=== PATIENT | female | born 1965 | race Caucasian/White ===

== ENCOUNTER → 2020-02-27 | Outpatient (CLI) | payer OTHER ==
--- NOTE | 2020-02-27 12:41 | Diagnostic Imaging Report ---
INDICATION: Routine screening. COMPARISON: No prior mammograms are available for comparison. TECHNIQUE: 2D and 3D bilateral screening mammography was performed with CAD. FINDINGS: Scattered fibroglandular densities are identified bilaterally. No dominant mass or malignant appearing microcalcifications are seen. The axillae are unremarkable. IMPRESSION: No mammographic features suspicious for malignancy are identified. ACR BI-RADS Category 1: Negative. Result letter will be mailed to the patient. Note: At least 10% of breast cancer is not imaged by mammography. Dictated by: Dictated on workstation # [id number]
== END ==
LOC: RAD 09:28
PROVIDERS: ATTEND Nurse Practitioner Family
DX: Z12.31 Encounter for screening mammogram for malignant neoplasm of breast (principal)
CPT/HCPCS: 77063; 77067

== ENCOUNTER 2021-11-21 05:30 | Outpatient (CLI) | payer SELFPAY ==
[~2021-11-21] VITALS: Ht 177.8 cm; Wt 113.4 kg
== END 2021-11-21 12:41 | disposition home or self-care (01) ==
LOC: PREOP 05:30
PROVIDERS: ATTEND Podiatrist Foot & Ankle Surgery
DX: Z01.818 Encounter for other preprocedural examination (principal)

== ENCOUNTER 2021-11-29 06:12 | Day surgery (SDC) | payer OTHER ==
[2021-11-29] VITALS (10 sets, daily range): BP systolic 113–144; BP diastolic 81–94
[~2021-11-29] VITALS: Ht 177 cm; Wt 113.4 kg
[2021-11-29] MEDS ORDERED: LACTATED RINGERS 1,000 ML IV PRN (06:30)
[2021-11-29] MEDS ORDERED: ceFAZolin INJECTION 1,000 MG VIAL IV ONE (06:30)
[2021-11-29] MEDS ORDERED: ceFAZolin INJECTION 1,000 MG ONE (06:38)
[2021-11-29] MEDS ORDERED: BUPIVACAINE 0.5% 30 ML (SENSORCAINE) VIAL ONE (07:23)
[2021-11-29] MEDS ORDERED: LIDOCAINE 1% INJ 20 ML VIAL ONE (07:23)
[2021-11-29] MEDS ORDERED: MIDAZOLAM 2 MG/2 ML (VERSED) VIAL ONE (07:28)
[2021-11-29] MEDS ORDERED: ONDANSETRON 4 MG/2 ML (SDV) Z0FRAN ONE (07:28)
[2021-11-29] MEDS ORDERED: fentaNYL INJ 100 MCG/2 ML AMP ONE ×2 (07:28→09:54)
[2021-11-29] MEDS ORDERED: LIDOCAINE PF 2% 5 ML (XYLOCAINE) VIAL ONE (07:28)
[2021-11-29] MEDS ORDERED: SEVOFLURANE (ULTANE) 15 ML INHAL SOLN ONE ×6 (07:28→10:17)
[2021-11-29] MEDS ORDERED: proPOfol 200 MG/20 ML (DIPRIVAN) VIAL IV ONE (07:28)
--- NOTE | 2021-11-29 07:50 | Progress Note-Pre Operative ---
Pre-Operative Progress Note Date of Available H&P: Nov 29, 2021 Date H&P Reviewed: Nov 29, 2021 Time H&P Reviewed: 07:49 Pre-Operative Diagnosis: Hallux Valgus, Hypertrophic 2nd metatarsal, 2nd Hammertoe, left JASKARAN SANCHEZIN Q DPM Nov 29, 2021 07:50
--- NOTE | 2021-11-29 10:28 | Progress Note-Post Operative ---
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
[2021-11-29] MEDS ORDERED: LACTATED RINGERS 1,000 ML IV SCH (10:30)
[2021-11-29] MEDS ORDERED: HYDROcodone/APAP 5 MG/325 MG (LORTAB) TAB PO PRN (10:30)
[2021-11-29] MEDS ORDERED: ACHD5005 PO (10:31)
[2021-11-29] MEDS ORDERED: CEPH500C PO (10:31)
--- NOTE | 2021-11-29 10:32 | Anesthesia-General Post-Op ---
General Patient Condition Mental Status/LOC: Same as Preop Cardiovascular: Satisfactory Nausea/Vomiting: Absent Respiratory: Satisfactory Pain: Controlled Complications: Absent Post Op Complications Complications None Follow Up Care/Instructions Patient Instructions None needed. Anesthesia/Patient Condition Patient Condition Patient is doing well, no complaints, stable vital signs, no apparent adverse anesthesia problems. No complications reported per nursing. ZURI ODONNELL CRNA Nov 29, 2021 10:32
[2021-11-29] MEDS ORDERED: ONDANSETRON 4 MG/2 ML (SDV) Z0FRAN IVP PRN (10:45)
[2021-11-29] MEDS ORDERED: MEPERIDINE (DEMEROL) INJ 50 MG/ML IVP ONE (10:45)
[2021-11-29] MEDS ORDERED: morphine INJ 10 MG/ML 1ML (SYR OR VIAL) IVP ONE (10:45)
[2021-11-29] MEDS ORDERED: HYDROmorphone 2 MG/ML VIAL (DILAUDID) IV ONE (10:45)
--- NOTE | 2021-11-29 12:32 | Diagnostic Imaging Report ---
INDICATION: Postoperative evaluation. EXAMINATION: Left foot 11/29/2021. FINDINGS: 2 views of the foot. There is a K wire extending through the 2nd phalanx. The tip of the wire ends at the proximal tip of the proximal 2nd phalanx. There is a screw within the 2nd metacarpal. 2 screws traverse the mid 1st metacarpal with osteotomy changes noted. Cerclage wire lies along the medial border of the proximal 1st phalanx with adjacent osteotomy changes. There is lateral subluxation of the proximal 2nd phalanx in relation to the 2nd metacarpal. The remaining osseous structures unremarkable. IMPRESSION: 1. Postoperative findings as described. Dictated by: Dictated on workstation # [id number]
--- NOTE | 2021-11-29 23:13 | OPERATIVE REPORT ---
DATE OF SERVICE: 11/29/2021 SURGEON: Mere Sanchez DPM. PREOPERATIVE DIAGNOSES: 1. Hallux abductovalgus metatarsal primus varus, left foot. 2. Hypertrophic second metatarsal, left foot. 3. Hammer digit syndrome, left second toe. POSTOPERATIVE DIAGNOSES: 1. Hallux abductovalgus metatarsal primus varus, left foot. 2. Hypertrophic second metatarsal, left foot. 3. Hammer digit syndrome, left second toe. 4. Subluxed left second metatarsophalangeal joint. PROCEDURES PERFORMED: 1. Modified Lester Lincoln bunionectomy, left foot. 2. Second metatarsal osteotomy with screw fixation, left foot. 3. Reduction of hammertoe, left second digit. WOUND CLASS: Clean. ANESTHESIA: General. HEMOSTASIS: Pneumatic thigh tourniquet at 300 mmHg. INDICATIONS: This 56-year-old female presents with a painful left foot. Conservative treatment has met with unsatisfactory results and the patient is agreeable to surgical intervention after risks and complications were discussed at length. No guarantees were extended to the patient and she is willing to proceed. DESCRIPTION OF PROCEDURE: The patient was brought back to the operating table, placed in secure supine position. A general anesthetic was then induced. Appropriate timeout was performed. Pneumatic thigh tourniquet was placed on the left lower extremity over several layers of padding. The left foot was then prepped and draped in normal sterile manner. Presurgical injection consisted of 10 mL of 50:50 mixture of 0.5% Marcaine and 1% lidocaine injected in a Rowe block and a fluid infusion to the second ray, left foot. The tourniquet was inflated to 300 mmHg after exsanguination was performed. Attention was then directed to the dorsal aspect of the left first metatarsophalangeal joint where a 6 cm longitudinal linear incision was created. The incision was deepened in the same location with great care to identify and retract all vital neurovascular structures. All the necessary blood vessels were cauterized as encountered. The incision was deepened down to the capsule where a longitudinal capsulotomy was performed. The capsular tissue was reflected medial laterally exposing the hypertrophic medial eminence to the first metatarsal head. This was resected utilizing a power sagittal saw. The surgery then focused on the first intermetatarsal space where a lateral release was performed. The conjoint tendon of the adductor hallucis was released. Lateral capsulorrhaphy was also performed. The fibular sesamoidal ligament was also released. Attention was redirected to the medial aspect of the left first metatarsal where a Lester type osteotomy was performed with a long dorsal arm. The capital fragment was allowed to translocate laterally and was fixated in its corrected position utilizing a standard AO technique with two 2.7 cortical screws of 16 mm of length. Excellent bony apposition and fixation was appreciated at this time. The head of the first metatarsal was further contoured and smoothed with a power sagittal saw and power bur. Attention was then directed to the diaphysis of the proximal phalanx where a subperiosteal dissection was carried out. Next, an Lincoln type procedure was performed allowing for an osteotomy with a medial wedge lateral cortices held intact. When the wedge of bone was resected, the gap was closed, allowing for good correction of the hallux valgus deformity. Utilizing a wire passing drill of 1.5 mm, two pilot plant supervisor holes were created to the medial aspect of the osteotomy, after which a 28-gauge monofilament wire was passed through the pilot plant supervisor hole securing the osteotomy in a closed position. Excellent bony apposition and fixation was appreciated and the wound was flushed with copious amounts of normal saline. Closure was then performed in layers. Deep closure was performed with 3-0 Vicryl, superficial with 4-0 Vicryl, skin closure with 4-0 Prolene in a horizontal mattress type stitch. Attention was then directed to the dorsal aspect of the left second ray where a 5 cm longitudinal linear incision was created from the surgical neck of the second metatarsal extending to the distal interphalangeal joint of the toe. The incision was deepened down to the extensor tendon where a Z slide lengthening was performed. This allowed for the proximal tendon to be reflected exposing the dorsal aspect of the second metatarsophalangeal joint. A dorsal capsulorrhaphy was performed and a release of the medial lateral collateral ligaments. It was noted that the head of the base of the proximal phalanx was somewhat dorsally and laterally dislocated at this time. Next, utilizing a power sagittal saw, a Jaky type osteotomy was performed. This allowed the capital fragment to translocate proximally. It was fixated in its corrected position utilizing a 2.0 snap-off screw of 14 mm of length. Excellent bony apposition and fixation was appreciated. The dorsal aspect of the second metatarsal head was further contoured and smoothed with a rongeur and a hand rasp. The wound was flushed with copious amounts of normal saline. Attention was then directed to the dorsal aspect of the left second toe where an arthrodesis was performed to the proximal interphalangeal joint. The extensor tendon was reflected distally exposing the capsule, which was a dorsal capsulorrhaphy with a release of the medial lateral collateral ligaments. Once this was done, the head of the proximal phalanx was fashioned into a peg with a power sagittal saw and power bur. A hole was created in the base of the middle phalanx with a power bur for the peg-in-hole type arthrodesis. Excellent bony apposition and fixation was appreciated once the 0.054 K-wire was driven down the toe holding the toe in its corrected position. The excess wire coming out the end of the toe was cut and a protective ball placed over the end of the wire. The wound was flushed with copious amounts of normal saline throughout the procedure and closure was then performed in layers. Deep closure was performed with 3-0 Vicryl, superficial with 4-0 Vicryl, skin closure with 4-0 Prolene in a horizontal mattress type stitch. Postoperative injection consisted of 10 mg of dexamethasone into the first intermetatarsal space followed by 17 mL of 0.5% Marcaine injected in a Rowe block as well as a block to the second ray, left foot. Postoperative dressing consisted of Betadine soaked Adaptic, sterile 4 x 4, sterile Kerlix all secured with a Coban wrap. The patient tolerated the anesthesia and procedure well and was transported from the operating room to the recovery area with vital signs stable and vascular status intact to all digits of the left foot. The patient is to keep the dressing dry, clean and intact. We will see her back in the office in 10 days' period of time or sooner if necessary. Job ID: [id number] DocumentID: [id number] Dictated Date: 11/29/2021 13:43:14 Credit Control Officer Date: 11/29/2021 23:11:54 Dictated By: MERE SANCHEZ DPM
== END 2021-11-29 12:55 | disposition home or self-care (01) ==
LOC: SDC 06:12
PROVIDERS: ATTEND Podiatrist Foot & Ankle Surgery
DX: M20.12 Hallux valgus (acquired), left foot (principal); M89.372 Hypertrophy of bone, left ankle and foot; M20.42 Other hammer toe(s) (acquired), left foot; Z79.899 Other long term (current) drug therapy
CPT/HCPCS: 28285; 28295; 73620; 87081; C1713 ×4

== ENCOUNTER → 2022-07-21 | Outpatient (CLI) | payer SELFPAY ==
[~2022-07-21] MED LIST: ACHD5005 PO; CEPH500C PO
--- NOTE | 2022-07-22 14:56 | Diagnostic Imaging Report ---
CLINICAL HISTORY: Screening. Obesity. COMPARISON: None. TECHNIQUE: Non-contrast enhanced EKG-gated axial images were obtained with a coned down field of view to assess for coronary calcium. Post processing of the images was performed on an independent work station. CTDI volume 5.86 mGy DLP 82.03 mGy*cm FINDINGS: Important Information About Your Scan: The following information is based on an analysis of the coronary arteries only. Calcium deposits do not correspond directly to the percentage of narrowing of the arteries. They do correlated directly to the amount of coronary plaque, and to the risk of future coronary disease. The calcium deposits usually begin to form years before any symptoms develop. Early detection and modification of risk factors, such as smoking and cholesterol intake, can slow the progress of coronary artery disease. A low score suggests a low likelihood of coronary artery disease, but does not exclude the possibility of significant coronary artery narrowing. The results should be discussed with your physician, taking into account other risk factors such as age, gender, family history, diabetes, smoking or high cholesterol levels. Should you ever experience chest pain, difficulty breathing, discomfort radiating into your neck or arm, or discomfort combined with lightheadedness, sweating, fainting or nausea, you should seek prompt medical attention. Calcium Score: Agatston units 0 - 0: No identifiable atherosclerotic plaque 1 - 10: Minimal plaque burden 11 - 100: Mild plaque burden 101 - 400: Moderate plaque burden Greater than 401: Extensive plaque burden. Score Summary: Your total calcium score is 0 Agatston units. Ranking Guide: Your score of 0 Agatston units places you in the 1st percentile rank. That means out of a group of people with same gender and similar age as yourself 99 percent will have a higher calcium score than you, as reported in literature. CORONARY AJ-130 Left Main artery (LMA) 0 Left Anterior Descending (LAD) 0 Left Circumflex (LCX) 0 Right Coronary Artery (RCA) 0 Posterior Descending Artery (PDA) 0 Total 0 Agatston units The visualized portions of the lungs demonstrate no focal nodules or masses. There are no pleural or pericardial effusions. The visualized osseous structures are age appropriate. IMPRESSION: 1. CT coronary calcium score is 0 Agatston units 2. Adoption and maintenance of a healthy lifestyle is recommended for all people. This includes regular appropriate exercise and observance of a proper diet, to ensure balanced nutrition and weight control. 3. Tobacco use should be avoided. 4. Hypercholesterolemia has been linked to coronary atherosclerosis. Ensure strict adherence to NCEP (National Cholesterol Education Panel) cholesterol-lowering guidelines. For primary prevention, these include a target goal for total cholesterol of less than 200 mg/dL, HDL cholesterol of greater than 40 mg/dL, triglycerides of less than 200 mg/dL and LDL cholesterol of less than 100 mg/dL Secondary prevention involves more stringent goals. However, please note that these are general recommendations and as with all such matters, the personal family physician should be consulted regarding recommendations appropriate for the individual. Recommend evaluation and treatment for all the other cardiovascular risk factors. Dictated by: Dictated on workstation # [id number]
== END ==
LOC: RAD 15:45
PROVIDERS: ATTEND Nurse Practitioner Family
DX: I25.10 Atherosclerotic heart disease of native coronary artery without angina pectoris (principal); E78.00 Pure hypercholesterolemia, unspecified; E66.9 Obesity, unspecified; Z13.6 Encounter for screening for cardiovascular disorders
CPT/HCPCS: 75571

== ENCOUNTER 2022-07-22 03:11 | Observation (INO) | payer OTHER, SELFPAY ==
[2022-07-22] VITALS (8 sets, daily range): BP systolic 114–158; BP diastolic 74–90
[~2022-07-22] VITALS: Ht 177.8 cm; Wt 122.0 kg
[2022-07-22] MEDS ORDERED: ASPIRIN 81 MG CHEW (CHILDREN'S ASA) PO ONE (03:30)
[2022-07-22] MEDS ORDERED: NITROGLYCERIN 0.4 MG SL TABS BTL 25'S SL PRN ×2 (03:30→18:30)
--- NOTE | 2022-07-22 03:33 | ED Cardiac General ---
History of Present Illness General Stated Complaint: CP,DIZZY Source: patient (TERE JAMISON DO) History of Present Illness Date Seen by Provider: July 22, 2022 Time Seen by Provider: 03:15 Initial Comments PT ARRIVES VIA POV FROM HOME WITH PT STATES THAT EXACTLY 0116 THIS AM, SHE HAD SUDDEN ONSET OF CHEST PAIN AND VERY RAPID HEART BEAT, WHILE WATCHING TV SHE DID NOT CHECK HER PULSE PAIN IS IN LEFT UPPER CHEST, AND IS CONSTANT. PAIN WAS 9/10 AT WORST, IS 5/10 NOW NO RADIATION OF PAIN, NOTHING WORSENS OR IMPROVES PAIN + SHORTNESS OF BREATH + SWEATS + NAUSEA, VOMITED X 1 + DIZZINESS--NO SYNCOPE NO SWELLING IN LEGS/FEET OR PAIN IN CALVES PT STATES SHE HAS THESE EPISODES OF RAPID HEART BEAT--STATES "SVT" BUT "HAVEN'T EVER CAUGHT IT BEFORE" SHE STATES THIS HAPPENS 3-4 TIMES A MONTH, AND OFTEN LASTS UP TO 4 HOURS SHE HAS NEVER SEEN A PATIENT SAFETY SITTER OR HAD ANY TESTS FOR THIS PROBLEM STATES SHE TAKES METOPROLOL FOR IT. SHE DENIES ANY OTHER MEDICAL PROBLEMS SHE SEES CLAM PICKER NELLY. 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 NO STRENUOUS ACTIVITY TODAY PCP: ZANA VILLEGAS (TERE JAMISON DO) Allergies and Home Medications Allergies Coded Allergies: No Known Drug Allergies (Unverified , 08/13/13) Patient Home Medication List Home Medication List Reviewed: Yes (DARNELL ROMEO MD) Cephalexin (Cephalexin) 500 Mg Capsule, 1 CAP PO TID Prescribed by: MERE SANCHEZ on 11/29/21 1031 Hydrocodone/Acetaminophen (Hydrocodone-Acetamin 5-325 mg) 5 Mg-325 Mg Tablet, 1 TAB PO Q4H PRN for PAIN-MODERATE (5-7) Prescribed by: MERE SANCHEZ on 11/29/21 1032 Review of Systems Review of Systems Constitutional: see HPI, diaphoresis, dizziness EENTM: No Symptoms Reported Respiratory: See HPI, Shortness of Air Cardiovascular: See HPI, Chest Pain; Denies Edema; Irregular Heart Rate, Lightheadedness, Palpitations; Denies Syncope Gastrointestinal: See HPI; Denies Abdominal Pain; Nausea, Vomiting Genitourinary: No Symptoms Reported Musculoskeletal: no symptoms reported Skin: no symptoms reported Psychiatric/Neurological: Anxiety Endocrine: No Symptoms Reported Hematologic/Lymphatic: No Symptoms Reported (SHAHEENTERE Hadley HOWARD) Past Qnaejar-Ubavih-Joaaop Hx Patient Social History Tobacco Use?: No Substance use?: Yes Substance type: Marijuana Alcohol Use?: Yes (SHAHEENTERE Hadley HOWARD) Immunizations Up To Date Tetanus Booster (TDap): Unknown First/Initial COVID19 Vaccinat: N/A Second COVID19 Vaccination Keegan: N/A Third COVID19 Vaccination Date: N/A (SHAHEENTERE Hadley HOWARD) Seasonal Allergies Seasonal Allergies: No (SHAHEENTERE Hadley HOWARD) Past Medical History Surgeries: Yes (LT KNEE X3; LEFT FOOT) Orthopedic, Tubal Ligation Respiratory: No Currently Using CPAP: No Currently Using BIPAP: No Cardiac: Yes Hypertension, Palpitations Neurological: No Reproductive Disorders: No Female Reproductive Disorders: Denies 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 Sexually Transmitted Disease: No HIV/AIDS: No Genitourinary: No Gastrointestinal: No Musculoskeletal: Yes (KNEE AND FOOT SURGERY) Arthritis Endocrine: No HEENT: Yes (CONTACTS AND GLASSES) Loss of Vision: Denies Hearing Impairment: Denies Cancer: No Psychosocial: No Integumentary: No Blood Disorders: No (SHAHEENTERE Hadley HOWARD) Physical Exam Vital Signs Vital Signs - First Documented 07/22/22 03:15 Temp 36.6 Pulse 97 Resp 24 B/P (MAP) 101/76 (84) Pulse Ox 99 O2 Delivery Room Air (DARNELL ROMEO MD) Vital Signs Capillary Refill : (TERE JAMISON Hadley HOWARD) Height, Weight, BMI Height: 5'10" Weight: 170lbs. oz. 77.555276lg; 36.19 BMI Method:Stated General Appearance: WD/WN, Anxious, Obese, Other (ANXIOUS, HYPERVENTILATING. 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 II- XII Norm as Tested Skin: Normal Color, Warm/Dry (TERE JAMISON DO) Progress/Results/Core Measures Results/Orders Lab Results Laboratory Tests Test 07/22/22 03:27 07/22/22 05:17 07/22/22 06:28 Range/Units White Blood Count 9.1 4.3-11.0 10^3/uL Red Blood Count 4.98 3.80-5.11 10^6/uL Hemoglobin 14.9 11.5-16.0 g/dL Hematocrit 46 35-52 % Mean Corpuscular Volume 92 80-99 fL Mean Corpuscular Hemoglobin 30 25-34 pg Mean Corpuscular Hemoglobin Concent 33 32-36 g/dL Red Cell Distribution Width 13.6 10.0-14.5 % Platelet Count 318 130-400 10^3/uL Mean Platelet Volume 11.2 9.0-12.2 fL Immature Granulocyte % (Auto) 0 % Neutrophils (%) (Auto) 62 42-75 % Lymphocytes (%) (Auto) 27 12-44 % Monocytes (%) (Auto) 7 0-12 % Eosinophils (%) (Auto) 2 0-10 % Basophils (%) (Auto) 1 0-10 % Neutrophils # (Auto) 5.7 1.8-7.8 10^3/uL Lymphocytes # (Auto) 2.5 1.0-4.0 10^3/uL Monocytes # (Auto) 0.6 0.0-1.0 10^3/uL Eosinophils # (Auto) 0.2 0.0-0.3 10^3/uL Basophils # (Auto) 0.1 0.0-0.1 10^3/uL Immature Granulocyte # (Auto) 0.0 0.0-0.1 10^3/uL Prothrombin Time 13.0 12.2-14.7 SEC INR Comment 0.9 0.8-1.4 Activated Partial Thromboplast Time 29 24-35 SEC D-Dimer 0.40 0.00-0.49 UG/ML Sodium Level 139 135-145 MMOL/L Potassium Level 3.5 L 3.6-5.0 MMOL/L Chloride Level 105 98-107 MMOL/L Carbon Dioxide Level 21 21-32 MMOL/L Anion Gap 13 5-14 MMOL/L Blood Urea Nitrogen 19 H 7-18 MG/DL Creatinine 1.18 0.60-1.30 MG/DL Estimat Glomerular Filtration Rate 54 BUN/Creatinine Ratio 16 Glucose Level 155 H 70-105 MG/DL Calcium Level 9.3 8.5-10.1 MG/DL Corrected Calcium 9.1 8.5-10.1 MG/DL Magnesium Level 2.2 1.6-2.4 MG/DL Total Bilirubin 0.4 0.1-1.0 MG/DL Aspartate Amino Transf (AST/SGOT) 27 5-34 U/L Alanine Aminotransferase (ALT/SGPT) 29 0-55 U/L Alkaline Phosphatase 105 40-136 U/L Total Creatine Kinase 161 29-168 U/L Creatine Kinase MB 4.5 <6.6 NG/ML Myoglobin 124.0 H 10.0-92.0 NG/ML Troponin I < 0.028 0.348 *H <0.028 NG/ML B-Type Natriuretic Peptide 142.4 H <100.0 PG/ML Total Protein 7.6 6.4-8.2 GM/DL Albumin 4.3 3.2-4.5 GM/DL Amylase Level 43 25-125 U/L Lipase < 4 L 8-78 U/L TSH [place] Testing 3.09 0.35-4.94 UIU/ML Serum Alcohol < 10 <10 MG/DL Urine Color YELLOW Urine Clarity CLEAR Urine pH 7.5 5-9 Urine Specific [place] 1.020 1.016-1.022 Urine Protein 1+ H NEGATIVE Urine Glucose (UA) NEGATIVE NEGATIVE Urine Ketones NEGATIVE NEGATIVE Urine Nitrite NEGATIVE NEGATIVE Urine Bilirubin NEGATIVE NEGATIVE Urine Urobilinogen 0.2 < = 1.0 MG/DL Urine Leukocyte Esterase NEGATIVE NEGATIVE Urine RBC (Auto) TRACE-I H NEGATIVE Urine RBC RARE /HPF Urine WBC 0-2 /HPF Urine Crystals NONE /LPF Urine Bacteria NEGATIVE /HPF Urine Casts NONE /LPF Urine Mucus NEGATIVE /LPF Urine Culture Indicated NO Urine Opiates Screen NEGATIVE NEGATIVE Urine Oxycodone Screen NEGATIVE NEGATIVE Urine Methadone Screen NEGATIVE NEGATIVE Urine Propoxyphene Screen NEGATIVE NEGATIVE Urine Barbiturates Screen NEGATIVE NEGATIVE Ur Tricyclic Antidepressants Screen NEGATIVE NEGATIVE Urine Phencyclidine Screen NEGATIVE NEGATIVE Urine Amphetamines Screen NEGATIVE NEGATIVE Urine Methamphetamines Screen NEGATIVE NEGATIVE Urine Benzodiazepines Screen NEGATIVE NEGATIVE Urine Cocaine Screen NEGATIVE NEGATIVE Urine Cannabinoids Screen NEGATIVE NEGATIVE (DARNELL ROMEO MD) Vital Signs/I&O 07/22/22 07/22/22 03:15 08:25 Temp 36.6 36.6 Pulse 97 76 Resp 24 20 B/P (MAP) 101/76 (84) 134/91 Pulse Ox 99 99 O2 Delivery Room Air Room Air (DARNELL ROMEO MD) Progress Progress Note : Progress Note GIVEN: -ASPIRIN -FENTANYL FOR CHEST PAIN -IV FLUIDS HR IN 90'S ON ARRIVAL, O2 SAT 100% ON ROOM AIR. NTG HELD, PT'S BLOOD PRESSURE IS AROUND 100 SYSTOLIC. PT VOMITED, AND HER NAUSEA AND DIZZINESS RESOLVED. PAIN RELIEVED WITH FENTANYL BP UP WITH IV FLUIDS INITIAL EKG AND TROPONIN ARE ESSENTIALLY NORMAL WILL DO REPEAT 3 HOUR TROPONIN AND EKG. REVIEWED PRIOR RECORDS--SINGLE ER VISIT IN 2013 FOR CONJUNCTIVITIS, AND OUTPATIENT FOOT SURGERY 11/2021. OUTPATIENT CARDIAC CT DONE 07/21/22 HAS NOT BEEN READ BY RADIOLOGIST. 0600--CARE TURNED OVER TO DR. ROMEO, REPEAT EKG AND TROPONIN HAVE BEEN ORDERED AND ARE PENDING. PT IS SYMPTOM-FREE AT THIS TIME AND VITALS ARE STABLE, BP > 100 SYSTOLIC, HR IN 80'S IN NSR. (TERE JAMISON DO) Progress Note : Progress Note Care of this patient was assumed from Dr. JAMISON at shift change. Repeat troponin was pending at that time. Patient remained pain free. Troponin returned elevated. Case was reviewed with Dr. Polanco (hospitalist) and Dr. Olivo (flight controls engineer). Patient was admitted for further cardiac evaluation. The cause of troponin elevation is unclear. Patient had a cardiac CT performed yesterday but results are not accessible due to Internet outage. Patient has had episodes of palpitations and could have elevated troponin due to sustained arrhythmia such as SVT. Lovenox was administered per Dr. Olivo's request. (DARNELL ROMEO MD) Initial ECG Impression Date: July 22, 2022 Initial ECG Impression Time: 03:23 Initial ECG Rate: 91 Initial ECG Rhythm: Normal Sinus Initial ECG Intervals: Normal Initial ECG Impression: Normal Initial ECG Comparisson: No Previous ECG Available Comment INTERPRETED BY ME (TERE JAMISON DO) Diagnostic Imaging Comments CXR--POOR INSPIRATION, VERY LARGE BREASTS, NO OBVIOUS ACUTE ABNORMALITY. PENDING RADIOLOGIST REVIEW Reviewed: Reviewed by Me (TERE JAMISON DO) Departure Communication (Admissions) Time/Spoke to Admitting Phy: 07:55 Dr. Polanco Time/Spoke to Consulting Phy: 07:50 Dr. Olivo (DARNELL ROMEO MD) Impression Primary Impression: Elevated troponin Additional Impression: Chest pain Qualified Codes: R07.9 - Chest pain, unspecified Disposition: ADMITTED INPATIENT Condition: Improved Admissions Decision to Admit Reason: Admit from ER (General) Decision to Admit/Date: July 22, 2022 Time/Decision to Admit Time: 07:50 (DARNELL ROMEO MD) Departure-Patient Inst. Referrals: RICA VILLEGAS APRN (PCP) Primary Care Physician NO,LOCAL PHYSICIAN (Family) Primary Care Physician TERE JAMISON DO July 22, 2022 03:33 DARNELL ROMEO MD July 22, 2022 21:06
[2022-07-22 03:35] LABS: BASOPHILS # (AUTO) 0.1 10^3/uL (0.0-0.1); BASOPHILS % (AUTO) 1 % (0-10); EOSINOPHILS # (AUTO) 0.2 10^3/uL (0.0-0.3); EOSINOPHILS % (AUTO) 2 % (0-10); HEMATOCRIT 46 % (35-52); HEMOGLOBIN 14.9 g/dL (11.5-16.0); LYMPHOCYTES # (AUTO) 2.5 10^3/uL (1.0-4.0); LYMPHOCYTES % (AUTO) 27 % (12-44); MEAN CORPUSCULAR HEMOGLOBIN 30 pg (25-34); MEAN CORPUSCULAR HGB CONC 33 g/dL (32-36); MEAN CORPUSCULAR VOLUME 92 fL (80-99); MEAN PLATELET VOLUME 11.2 fL (9.0-12.2); MONOCYTES # (AUTO) 0.6 10^3/uL (0.0-1.0); MONOCYTES % (AUTO) 7 % (0-12); NEUTROPHILS # (AUTO) 5.7 10^3/uL (1.8-7.8); NEUTROPHILS % (AUTO) 62 % (42-75); PLATELET COUNT 318 10^3/uL (130-400); WHITE BLOOD COUNT 9.1 10^3/uL (4.3-11.0)
[2022-07-22] MEDS ORDERED: fentaNYL INJ 100 MCG/2 ML AMP IVP STA (03:36)
[2022-07-22] MEDS ORDERED: LACTATED RINGERS 1,000 ML IV ONE (03:45)
[2022-07-22 03:49] LABS: ALBUMIN 4.3 GM/DL (3.2-4.5)
[2022-07-22 03:50] LABS: CHLORIDE 105 MMOL/L (98-107); POTASSIUM 3.5 MMOL/L (3.6-5.0); SODIUM 139 MMOL/L (135-145)
[2022-07-22 03:51] LABS: CALCIUM 9.3 MG/DL (8.5-10.1)
[2022-07-22 03:52] LABS: AMYLASE 43 U/L (25-125); GLUCOSE 155 MG/DL (70-105); TOTAL PROTEIN 7.6 GM/DL (6.4-8.2)
[2022-07-22 03:53] LABS: CARBON DIOXIDE 21 MMOL/L (21-32); FIBRIN DEGRADATION PRODUCTS 0.4 UG/ML (0.00-0.49); INR 0.9 (0.8-1.4)
[2022-07-22 03:54] LABS: BILIRUBIN,TOTAL 0.4 MG/DL (0.1-1.0)
[2022-07-22 03:55] LABS: ALKALINE PHOSPHATASE 105 U/L (40-136)
[2022-07-22 03:56] LABS: CREATININE SERUM 1.18 MG/DL (0.60-1.30); GFR ESTIMATED 54
[2022-07-22 03:57] LABS: BUN/CREATININE RATIO 16
[2022-07-22 03:58] LABS: ALANINE AMINOTRANSFERASE 29 U/L (0-55)
[2022-07-22 03:59] LABS: MAGNESIUM 2.2 MG/DL (1.6-2.4)
[2022-07-22 04:00] LABS: CREATINE KINASE 161 U/L (29-168); LIPASE < 4 U/L (8-78)
[2022-07-22 04:08] LABS: CREATINE KINASE MB 4.5 NG/ML (<6.6)
[2022-07-22 04:20] LABS: TSH (THYROID ANALYZER) 3.09 UIU/ML (0.35-4.94)
[2022-07-22 05:35] LABS: BILIRUBIN,URINE NEGATIVE (NEGATIVE); CLARITY,URINE CLEAR; COLOR,URINE YELLOW; GLUCOSE, URINE (UA) NEGATIVE (NEGATIVE); KETONES,URINE NEGATIVE (NEGATIVE); LEUKOCYTE ESTERASE ,URINE NEGATIVE (NEGATIVE); NITRITE,URINE NEGATIVE (NEGATIVE); PH,URINE 7.5 (5-9); PROTEIN,URINE 1+ (NEGATIVE)
[2022-07-22 06:02] LABS: AMPHETAMINE SCREEN, URINE NEGATIVE (NEGATIVE); BARBITURATE SCREEN URINE NEGATIVE (NEGATIVE); BENZODIAZEPINES SCREEN URINE NEGATIVE (NEGATIVE); CANNABINOID SCREEN, URINE NEGATIVE (NEGATIVE); COCAINE SCREEN URINE NEGATIVE (NEGATIVE); METHADONE STAT NEGATIVE (NEGATIVE); OPIATE SCREEN URINE NEGATIVE (NEGATIVE); OXYCODONE STAT NEGATIVE (NEGATIVE); PROPOXYPHENE STAT NEGATIVE (NEGATIVE); TRICYCLIC ANTIDEPRESSANTS SCRE NEGATIVE (NEGATIVE)
[2022-07-22 06:03] LABS: BACTERIA,URINE NEGATIVE /HPF; RBC,URINE RARE /HPF; WBC,URINE 0-2 /HPF
--- NOTE | 2022-07-22 06:34 | Diagnostic Imaging Report ---
HISTORY: Chest pain TECHNIQUE: Frontal view the chest COMPARISON: None FINDINGS: Lung volumes are mildly low. No consolidation is seen. Haziness of the left lung base is thought to be due to overlying soft tissue. The cardiac silhouette is mildly prominent, likely secondary to technique. There is no large effusion or pneumothorax. IMPRESSION: 1. Low lung volumes with no acute pulmonary abnormality seen. Dictated by: Dictated on workstation # [id number]
[2022-07-22] MEDS ORDERED: ENOXAPARIN 100 MG/1 ML (LOVENOX) SYR ONE (08:09)
[2022-07-22] MEDS ORDERED: NS IV 1000 ML 1,000 ML ONE (16:13)
[2022-07-22] MEDS ORDERED: HEParin (CATH LAB) 2,000 ML IV ONE (16:13)
[2022-07-22] MEDS ORDERED: LIDOCAINE 1% INJ 20 ML VIAL ONE (16:13)
[2022-07-22] MEDS ORDERED: fentaNYL INJ 100 MCG/2 ML AMP ONE (16:29)
[2022-07-22] MEDS ORDERED: MIDAZOLAM 5 MG/5 ML (VERSED) VIAL ONE (16:30)
--- NOTE | 2022-07-22 17:06 | Cardiac Procedure Note-CS/ASA ---
Pre-Procedure Note Pre-Op Procedure Note Date of Available H&P: July 22, 2022 Date H&P Reviewed: July 22, 2022 Time H&P Reviewed: 16:00 History & Physical: H&P Reviewed, Patient Examed, No changes noted Pre-Operative Diagnosis: Chest pain Moderate Sedation PreProcedure Time 16:00 ASA Score 3 Airway Lungs Heart ASA score ASA 1: a normal healthy patient ASA 2: a patient with a mild systemic disease (mid diabetes, controlled hypertension, obesity ASA 3: a patient with a severe systemic disease that limits activity (angina, COPD, prior Myocardial infarction) ASA 4: a patient with an incapacitating disease that is a constant threat to l markus (CHF, renal failure) ASA 5: a moribund patient not expected to survive 24 hrs. (ruptured aneurysm) ASA 6: a declared brain- patient whose organs are being harvested. For emergent operations, add the letter E after the classification Mallampati Classification Grade 3 Sedation Plan Analgesia, Amnesia, Plan communicated to team members, Discussed options with patient/fam, Discussed risks with patient/fam The patient is an appropriate candidate to undergo the planned procedure, sedation, and anesthesia. The patient immediately re-assessed prior to indication. FAVIAN PAUL MD July 22, 2022 17:06
--- NOTE | 2022-07-22 17:06 | Consultation-Cardiology ---
HPI-Cardiology Cardiology Consultation Date of Consultation 07/22/22 Date of Admission Time Seen by Provider: 08:00 Indication: Chest pain HPI 57-year-old lady who had questionable history of heart disease, reported that she had CT of her heart done yesterday. She started at 1 a.m. in the morning with chest pain and feeling rapid heart rate while watching TV. Pain in the upper chest constant, about 9-10/10 in intensity. Came into the emergency room, reported shortness of breath, diaphoresis and nausea and dizziness. She has been having SVTs in the past and palpitation but no further work-up was done. Patient was noted to have elevation in troponin. [facility], upon receiving a report that she did not have a CT of her coronaries, she had a calci um score done. It was in the afternoon. I recommended cardiac catheterization possible PTCA. Home Medications & Allergies Allergies: Coded Allergies: No Known Drug Allergies (Unverified , 08/13/13) Home Medication List Reviewed: Yes PJE-Ijhyfb-Hlnbir Hx Patient Social History Marital Status: Employed/Student: employed 2[employer] Smoke Exposure: No Recent Hopitalizations: No Have you traveled recently?: No Alcohol Use?: Yes Substance type: Marijuana Immunizations Up To Date Tetanus Booster (TDap): Unknown Past Medical History Discussed below Family Medical History Significant Family History: No Pertinent Family Hx Review of Systems-General Review of Systems Constitutional: see HPI, diaphoresis, dizziness, malaise EENTM: see HPI, no symptoms reported Respiratory: no symptoms reported, see HPI, short of breath Cardiovascular: see HPI, chest pain, palpitations Gastrointestinal: no symptoms reported, see HPI Genitourinary: no symptoms reported, see HPI Musculoskeletal: no symptoms reported Skin: no symptoms reported Psychiatric/Neurological: Anxiety Reviewed Test Results Reviewed Test Results Lab Laboratory Tests Test 07/22/22 03:27 07/22/22 05:17 07/22/22 13:08 Range/Units White Blood Count 9.1 4.3-11.0 10^3/uL Red Blood Count 4.98 3.80-5.11 10^6/uL Hemoglobin 14.9 11.5-16.0 g/dL Hematocrit 46 35-52 % Mean Corpuscular Volume 92 80-99 fL Mean Corpuscular Hemoglobin 30 25-34 pg Mean Corpuscular Hemoglobin Concent 33 32-36 g/dL Red Cell Distribution Width 13.6 10.0-14.5 % Platelet Count 318 130-400 10^3/uL Mean Platelet Volume 11.2 9.0-12.2 fL Immature Granulocyte % (Auto) 0 % Neutrophils (%) (Auto) 62 42-75 % Lymphocytes (%) (Auto) 27 12-44 % Monocytes (%) (Auto) 7 0-12 % Eosinophils (%) (Auto) 2 0-10 % Basophils (%) (Auto) 1 0-10 % Neutrophils # (Auto) 5.7 1.8-7.8 10^3/uL Lymphocytes # (Auto) 2.5 1.0-4.0 10^3/uL Monocytes # (Auto) 0.6 0.0-1.0 10^3/uL Eosinophils # (Auto) 0.2 0.0-0.3 10^3/uL Basophils # (Auto) 0.1 0.0-0.1 10^3/uL Immature Granulocyte # (Auto) 0.0 0.0-0.1 10^3/uL Prothrombin Time 13.0 12.2-14.7 SEC INR Comment 0.9 0.8-1.4 Activated Partial Thromboplast Time 29 24-35 SEC D-Dimer 0.40 0.00-0.49 UG/ML Sodium Level 139 135-145 MMOL/L Potassium Level 3.5 L 3.6-5.0 MMOL/L Chloride Level 105 98-107 MMOL/L Carbon Dioxide Level 21 21-32 MMOL/L Anion Gap 13 5-14 MMOL/L Blood Urea Nitrogen 19 H 7-18 MG/DL Creatinine 1.18 0.60-1.30 MG/DL Estimat Glomerular Filtration Rate 54 BUN/Creatinine Ratio 16 Glucose Level 155 H 70-105 MG/DL Calcium Level 9.3 8.5-10.1 MG/DL Corrected Calcium 9.1 8.5-10.1 MG/DL Magnesium Level 2.2 1.6-2.4 MG/DL Total Bilirubin 0.4 0.1-1.0 MG/DL Aspartate Amino Transf (AST/SGOT) 27 5-34 U/L Alanine Aminotransferase (ALT/SGPT) 29 0-55 U/L Alkaline Phosphatase 105 40-136 U/L Total Creatine Kinase 161 29-168 U/L Creatine Kinase MB 4.5 <6.6 NG/ML Myoglobin 124.0 H 10.0-92.0 NG/ML Troponin I < 0.028 0.554 *H <0.028 NG/ML B-Type Natriuretic Peptide 142.4 H <100.0 PG/ML Total Protein 7.6 6.4-8.2 GM/DL Albumin 4.3 3.2-4.5 GM/DL Amylase Level 43 25-125 U/L Lipase < 4 L 8-78 U/L TSH [place] Testing 3.09 0.35-4.94 UIU/ML Serum Alcohol < 10 <10 MG/DL Urine Color YELLOW Urine Clarity CLEAR Urine pH 7.5 5-9 Urine Specific [place] 1.020 1.016-1.022 Urine Protein 1+ H NEGATIVE Urine Glucose (UA) NEGATIVE NEGATIVE Urine Ketones NEGATIVE NEGATIVE Urine Nitrite NEGATIVE NEGATIVE Urine Bilirubin NEGATIVE NEGATIVE Urine Urobilinogen 0.2 < = 1.0 MG/DL Urine Leukocyte Esterase NEGATIVE NEGATIVE Urine RBC (Auto) TRACE-I H NEGATIVE Urine RBC RARE /HPF Urine WBC 0-2 /HPF Urine Crystals NONE /LPF Urine Bacteria NEGATIVE /HPF Urine Casts NONE /LPF Urine Mucus NEGATIVE /LPF Urine Culture Indicated NO Urine Opiates Screen NEGATIVE NEGATIVE Urine Oxycodone Screen NEGATIVE NEGATIVE Urine Methadone Screen NEGATIVE NEGATIVE Urine Propoxyphene Screen NEGATIVE NEGATIVE Urine Barbiturates Screen NEGATIVE NEGATIVE Ur Tricyclic Antidepressants Screen NEGATIVE NEGATIVE Urine Phencyclidine Screen NEGATIVE NEGATIVE Urine Amphetamines Screen NEGATIVE NEGATIVE Urine Methamphetamines Screen NEGATIVE NEGATIVE Urine Benzodiazepines Screen NEGATIVE NEGATIVE Urine Cocaine Screen NEGATIVE NEGATIVE Urine Cannabinoids Screen NEGATIVE NEGATIVE Physical Exam Physical Exam Vital Signs Vital Signs - First Documented 07/22/22 03:15 Temp 36.6 Pulse 97 Resp 24 B/P (MAP) 101/76 (84) Pulse Ox 99 O2 Delivery Room Air Capillary Refill : Less Than 3 Seconds Height, Weight, BMI Height: 5'10" Weight: 170lbs. oz. 77.852573pc; 32.00 BMI Method:Stated General Appearance: WD/WN, Anxious, Obese, Other (ANXIOUS, HYPERVENTILATING. HOLDING LEFT UPPER CHEST) Eyes: Bilateral Eye Normal Inspection, Bilateral Eye PERRL, Bilateral Eye EOMI HEENT: PERRL/EOMI, TMs Normal, Normal ENT Inspection, Pharynx Normal, Moist Mucous Membranes Neck: Full Range of Motion, Normal Inspection, Non Tender, Supple Respiratory: Normal Breath Sounds, No Accessory Muscle Use, No Respiratory Distress (HYPERVENTILATING) Cardiovascular: Regular Rate, Rhythm, No Edema, No JVD, No Murmur, Normal Peripheral Pulses Gastrointestinal: Non Tender, Soft Back: Normal Inspection, No CVA Tenderness, No Vertebral Tenderness Extremity: Normal Capillary Refill, Normal Inspection, Normal Range of Motion, Non Tender, No Calf Tenderness, No Pedal Edema Neurologic/Psychiatric: Alert, Oriented x3, No Motor/Sensory 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 Currently in sinus rhythm Chest pain, elevated troponin. Type II myocardial infarction Cardiac catheterization was carried out on July 22, 2022 showing nonobstructive disease Shortness of breath with the chest pain. Resolved. Hypertension, monitor blood pressure Clinical Quality Measures AMI/AHF: ASA po Prior to arrival: FAVIAN Grant MD July 22, 2022 17:06
--- NOTE | 2022-07-22 17:09 | Cardiac Cath Report ---
Cardiac Cath Report Physician (s)/Supervisor Testing (s) Physician FAVIAN PAUL MD Pre-Procedure Diagnosis Pre-Procedure Diagnosis: Chest pain Post-Procedure Note Procedure Start Date: July 22, 2022 Procedure Start Time: 17:06 Name of Procedure: Left heart catheterization Left ventriculogram Findings/Procedure Note PROCEDURE NOTE: 57-year-old lady admitted with palpitation and chest pain, had elevation in troponin level, cardiac catheterization was advised. After explaining the procedure to the patient, all pros and cons were explained, all questions were answered. The patient signed the consent and then she was placed in the cardiac catheterization laboratory. Groin was prepped in SL fashion local anesthesia was used. Sheath placed in the right femoral artery. Asya' right and left catheter were used to access the coronary system. Pigtail was used to access the left ventricular cavity. Left ventriculogram was done At the end of the procedure the sheath was removed. Closure device was deployed FINDINGS: Hemodynamics LV 145/19, end-diastolic pressure of 19 Aorta 127/83 mean of 102 ANATOMY: Left Main is free of obstructive disease Left Anterior Descending is free of obstructive disease Left Circumflex is free of obstructive disease Right Coronary Artery is dominant artery with no obstructive disease LV Gram was done showing normal left ventricular size with normal contractility, ejection fraction 60% CONCLUSION: No obstructive coronary artery disease Mildly elevated left ventricular end-diastolic pressure, normal left ventricular systolic function with ejection fraction 60% DISCUSSION AND RECOMMENDATION: Elevation in troponin is probably type II myocardial infarction secondary to tachycardia. Recommend evaluation with outpatient Zio patch Anesthesia Type: Conscious Sedation Estimated blood loss (mL): 15 ml Contrast Amount: 34 ml Total Radiation Dose: 455 mGy Post-Procedure Diagnosis Post-operative diagnosis: Chest pain Type II myocardial infarction Palpitation SVT FAVIAN PAUL MD July 22, 2022 17:09
--- NOTE | 2022-07-22 17:10 | Discharge Inst-Post CATH ---
Discharge Inst-CATH/EP Problems Reviewed?: Yes Post Cardiac Cath/EP D/C Inst Follow Up/Plan Appointment with Dr. Olivo's office in 2 to 4 weeks <b>CARDIAC CATH/EP PROCEDURE DISCHARGE INSTRUCTIONS</b> ACTIVITY * Go Home directly and rest. * Limit activity of the leg (or wrist if it was used) for 7 days including aer obics, swimming, jogging, bicycling, etc. * Restrict stair-climbing for 7 days if possible, if not, climb up with your non-cath leg, then bring together on the same step. * Avoid lifting, pushing, pulling or excessive movement of the affected extremi ty for 7 days. * Customary sexual activity may be resumed after 2 days-use caution not to use a position that strains or causes pain to the affected extremity. * No driving for 24 hours. * NO SMOKING. * Avoid straining for bowel movements for 7 days. * Gentle walking on level ground is allowed. * Returning to work will depend on the type of procedure and the results. Your doctor will discuss this with you. CALL YOUR DOCTOR FOR ANY OF THE FOLLOWING: *If bleeding from the puncture site occurs- Apply gentle pressure to site with clean cloth and call your doctor or EMS. * If a knot or lump forms under the skin, increases in size, or causes pain. * If bruising appears to be worsening or moving further down your leg instead of disappearing. * Temperature above 101 F. CARE OF YOUR GROIN INCISION; * Bruising or purple discoloration of the skin near the puncture site is common. * You may shower only, no bathtub bathing for 5 days. Be careful to avoid slipping as your leg may feel stiff. * If a closure device was used on your femoral artery, please see the attached guide regarding care of the device and your leg. * Leave dressing on FOR 24 hours. CARE OF YOUR WRIST INCISION; * Bruising or purple discoloration of the skin near the puncture site is common. * You may shower. * DO NOT submerge wrist. * Leave dressing on FOR 24 hours. FAVIAN OLIVO MD July 22, 2022 17:10
[2022-07-22] MEDS ORDERED: PATIENT MAY USE OWN MEDS, ALL PO SCH (17:15)
[2022-07-22] MEDS: NS IV 1000 ML 1,000 ML IV SCH (17:40)
[2022-07-22] MEDS ORDERED: ENOXAPARIN 100 MG/1 ML (LOVENOX) SYR SC ONE (17:45)
[2022-07-22] MEDS ORDERED: morphine INJ 4 MG/ML 1 ML (VIAL/SYRINGE) IV PRN (18:30)
[2022-07-22] MEDS ORDERED: ONDANSETRON 4 MG/2 ML (SDV) Z0FRAN IVP PRN (18:30)
[2022-07-23] MEDS: NS IV 1000 ML 1,000 ML IV SCH (02:50)
[2022-07-23 03:21] VITALS: BP 111/74
[2022-07-23 05:50] LABS: HEMATOCRIT 39 % (35-52); HEMOGLOBIN 12.9 g/dL (11.5-16.0); MEAN CORPUSCULAR HEMOGLOBIN 30 pg (25-34); MEAN CORPUSCULAR HGB CONC 33 g/dL (32-36); MEAN CORPUSCULAR VOLUME 92 fL (80-99); MEAN PLATELET VOLUME 11.3 fL (9.0-12.2); PLATELET COUNT 257 10^3/uL (130-400); WHITE BLOOD COUNT 6.8 10^3/uL (4.3-11.0)
[2022-07-23 05:57] LABS: CALCIUM 8.3 MG/DL (8.5-10.1); CREATININE SERUM 0.79 MG/DL (0.60-1.30); POTASSIUM 3.7 MMOL/L (3.6-5.0)
[2022-07-23] MEDS ORDERED: CATHETER FLUSH 10 ML SYR IVP PRN (06:30)
[2022-07-23] MEDS ORDERED: PANTOPRAZOLE 40 MG (PROTONIX) TAB PO SCH (09:00)
[2022-07-23] MEDS ORDERED: ASPIRIN E.C. 81 MG (ECOTRIN) TAB PO SCH (09:00)
[2022-07-23 09:15] VITALS: BP 126/76
--- NOTE | 2022-07-23 11:19 | Cardiology Progress Note ---
Subjective Date Seen by Provider: July 23, 2022 Time Seen by Provider: 08:00 Subjective/Events-last exam Patient was seen at bedside, feeling well. No chest pain. Review of Systems General: No Chills, No Night Sweats, No Fatigue, No Malaise, No Appetite, No Other HEENT: No Head Aches, No Visual Changes, No Eye Pain, No Ear Pain, No Dysphasia, No Sinus Congestion, No Post Nasal Drip, No Sore Throat, No Other Pulmonary: No Dyspnea, No Cough, No Pleuritic Chest Pain, No Other Cardiovascular: No: Chest Pain, Palpitations, Orthopnea, Paroxysmal Noc. Dyspnea, Edema, Lt Headedness, Other Objective-Cardiology Exam Last Set of Vital Signs Vital Signs 07/23/22 03:21 Temp 37.1 Pulse 78 Resp 16 B/P (MAP) 111/74 (86) Pulse Ox 95 O2 Delivery Room Air I&O Intake and Output 07/23/22 00:00 Intake Total 250 ml Output Total 250 ml Balance 0 ml Intake Oral 250 ml Output Urine Total 250 ml Daily Weight Change No General: Alert, Oriented X3, Cooperative HEENT: Atraumatic, PERRLA Neck: Supple, No JVD, No Thyromegaly Lungs: Clear to Auscultation, Normal Air Movement Heart: Regular Rate, Normal S1, Normal S2, No Murmurs Abdomen: Normal Bowel Sounds, Soft, No Tenderness, No Hepatosplenomegaly, No Masses Extremities: No Clubbing, No Cyanosis, No Edema, Normal Pulses, No Tenderness/Swelling Skin: No Rashes, No Breakdown, No Significant Lesion Neuro: Normal Gait, Normal Speech, Strength at 5/5 X4 Ext, Normal Tone, Sensation Intact Psych/Mental Status: Mental Status NL, Mood NL Results Lab Laboratory Tests 07/23/22 05:20 A/P-Cardiology Admission Diagnosis Recurrent palpitation Chest pain Type II myocardial infarction Hypertension Assessment/Plan Recurrent palpitation, history of SVT in the past No full work-up was done. Currently in sinus rhythm We will consider using Zio patch as an outpatient Chest pain, elevated troponin. Type II myocardial infarction Cardiac catheterization was carried out on July 22, 2022 showing nonobstructive disease Shortness of breath with the chest pain. Resolved. Hypertension, monitor blood pressure Okay for discharge and follow-up as an outpatient FAVIAN PAUL MD July 23, 2022 11:19
== END 2022-07-23 09:15 | disposition home or self-care (01) ==
LOC: EDUNIT# 03:11 → ER 03:13 → CSD 08:27
PROVIDERS: ADMIT Family Medicine; ATTEND Family Medicine
DX: R07.9 Chest pain, unspecified (principal); R06.02 Shortness of breath; R77.8 Other specified abnormalities of plasma proteins; I21.A1 Myocardial infarction type 2; I47.1 Supraventricular tachycardia; I10 Essential (primary) hypertension; Z28.310 Unvaccinated for COVID-19
CPT/HCPCS: 71045; 80048; 80053; 80061; 80306; 81000; 82150; 82550; 82553; 83690; 83735; 83874; 83880; 84443; 84484; 85025; 85027; 85379; 85610; 85730; 93005; 93041; 93458; 96372; 99284; C1760; C1894; G0378; G0480; 36415; 80320; 96361; 96374

== ENCOUNTER → 2022-09-01 | Outpatient (CLI) | payer OTHER | LOC: CARD 09:00 | PROVIDERS: ATTEND Physician Assistant | DX: I11.9 Hypertensive heart disease without heart failure (principal); I25.10 Atherosclerotic heart disease of native coronary artery without angina pectoris | CPT/HCPCS: 93306 ==